=== PATIENT | female | born 1935 | race Caucasian/White ===

== ENCOUNTER 2016-12-06 12:06 | Emergency (ER) | payer MEDICARE, BC ==
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
[2016-12-06] MEDS ORDERED: Sodium Chloride 0.9% 250 ML IV ONE (12:37)
[2016-12-06] MEDS ORDERED: Sodium Chloride 0.9% 1,000 ML ONE (12:38)
[2016-12-06] MEDS ORDERED: Sodium Chloride 0.9% 1,000 ML IV SCH (13:00)
--- NOTE | 2016-12-06 13:36 | CT ---
Head CT Technique: Multiple axial sections through the brain were obtained. Intravenous contrast was not utilized. Comparison: No previous intracranial imaging. Findings: Ventricles along with basal cisterns and sulci over the convexities are mildly prominent. Mild diminished density is noted within portions of the basal ganglia compatible with a combination of lacunar infarcts and small vessel ischemic demyelination change. Very minimal diminished density is noted within portions of the periventricular white matter also compatible with small vessel ischemic demyelination change. No other abnormal parenchymal densities are seen. No evidence of intracranial hemorrhage. No midline shift or mass effect is seen. Bone window settings were reviewed which shows no discrete calvarial abnormality. Mild mucosal thickening is noted within the right ethmoid sinuses, right sphenoid sinus and left frontal sinus. Impression: 1. Sinus findings which are likely chronic and incidental. 2. Mild senescent change. 3. Nothing acute is appreciated at this time on noncontrast head CT study. Diagnostic code #2
[2016-12-06] MEDS ORDERED: Ibuprofen 200 MG Tab PO ONE (14:45)
[2016-12-06] MEDS ORDERED: Acetaminophen 325 MG Tab PO ONE (14:46)
[2016-12-06] MEDS ORDERED: Ibuprofen 400 MG Tab PO ONE (14:54)
[2016-12-06 15:57] VITALS: BP 134/84
== END 2016-12-06 15:50 | disposition home or self-care (01) ==
LOC: JD.ED 12:06 → SUPCPDRO 12:06 → JD.ED 15:50
DX: R41.0 Disorientation, unspecified (principal); K08.89 Other specified disorders of teeth and supporting structures; E22.2 Syndrome of inappropriate secretion of antidiuretic hormone; Z88.8 Allergy status to other drugs, medicaments and biological substances; Z79.899 Other long term (current) drug therapy; I48.91 Unspecified atrial fibrillation; E78.00 Pure hypercholesterolemia, unspecified; I10 Essential (primary) hypertension; Z95.0 Presence of cardiac pacemaker; K21.9 Gastro-esophageal reflux disease without esophagitis; R06.09 Other forms of dyspnea
CPT/HCPCS: 36415; 70450; 80053; 81001; 83880; 83930; 85025; 85610; 86140; 93005; 96360; 96361; 99285; A9270; J7040; 99284-25

== ENCOUNTER 2019-05-20 16:56 | Emergency (ER) | payer MEDICARE, BC ==
[2019-05-20 17:28] VITALS: BP 150/85; PULSE 71
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
--- NOTE | 2019-05-21 07:50 | CR ---
Chest: Portable view of the chest was obtained. Comparison: Prior chest x-ray of 02/21/16. Heart size appears within normal limits for portable technique. Tortuous thoracic aorta is seen. Bichamber pacemaker is seen. Lungs are clear with no acute parenchymal change. Bony structures are grossly intact. Impression: 1. Nothing acute is appreciated on portable chest x-ray. Diagnostic code #2
--- NOTE | 2019-05-21 07:50 | CR ---
Abdomen: Supine view of the abdomen was obtained. Comparison: No prior abdominal x-ray. Two calcifications are seen adjacent to the L4 and L5 vertebral bodies on the right side. Difficult to completely exclude ureteral stones although this would more likely be due to calcified lymph nodes. Surgical clips are seen from prior cholecystectomy. Several phleboliths are seen in the pelvis. Bowel gas pattern is normal. Mild degenerative change is seen within the spine. Impression: 1. Two calcifications to the right of the spine as noted above. 2. Other incidental findings. Diagnostic code #2
== END 2019-05-20 20:34 | disposition home or self-care (01) ==
LOC: JD.ED 16:56
DX: I49.3 Ventricular premature depolarization (principal); E87.1 Hypo-osmolality and hyponatremia; R79.1 Abnormal coagulation profile; I10 Essential (primary) hypertension; Z90.49 Acquired absence of other specified parts of digestive tract; Z79.899 Other long term (current) drug therapy; Z79.01 Long term (current) use of anticoagulants; Z88.6 Allergy status to analgesic agent; Z88.8 Allergy status to other drugs, medicaments and biological substances
CPT/HCPCS: 36415; 71045; 71045-26; 74018; 74018-26; 80053; 81001; 82553; 83735; 83880; 84484; 85025; 85610; 86140; 93005; 93010; 99284; 99285-25